=== PATIENT | male | born 1970 | race Caucasian/White ===

== ENCOUNTER 2023-07-11 15:51 | Emergency (ER) | payer OTHER, BC ==
[~2023-07-11] VITALS: Ht 157.5 cm; Wt 63.5 kg
[2023-07-11 16:04] VITALS: BP 148/76; PULSE 88; RESP 16; TEMP 97.7; O2SAT 100
[2023-07-11] MEDS: HYDROcodone/APAP 5/325 MG 1 TAB TAB PO ONE (17:10)
[2023-07-11] MEDS: KETOROLAC 30 MG/ML VIAL IM ONE (18:29)
[2023-07-11 18:32] VITALS: BP 143/83; PULSE 77; RESP 10; O2SAT 98
[2023-07-11] MEDS ORDERED: IBUP-2213 PO (19:06)
[2023-07-11] MEDS ORDERED: CYCL-711 PO (19:06)
== END 2023-07-11 20:10 | disposition home or self-care (01) ==
LOC: MED 15:51
DX: S29.012A Strain of muscle and tendon of back wall of thorax, initial encounter (principal); S20.219A Contusion of unspecified front wall of thorax, initial encounter; E11.9 Type 2 diabetes mellitus without complications; Z98.890 Other specified postprocedural states; Z79.899 Other long term (current) drug therapy; V43.52XA Car driver injured in collision with other type car in traffic accident, initial encounter; Y93.89 Activity, other specified; Y92.410 Unspecified street and highway as the place of occurrence of the external cause; Y99.8 Other external cause status
CPT/HCPCS: 71045; 72072; 82948; 93005; 96372; 99284; J1885